=== PATIENT | female | born 1955 | race Caucasian/White ===

== ENCOUNTER 2017-02-17 14:20 | Emergency (ER) | payer MEDICARE, OTHER ==
[~2017-02-17] VITALS: Ht 152.4 cm; Wt 35.0 kg
[~2017-02-17 14:20] MED LIST: ALPR0.25 PO; CIPR250T27 PO; DICY20TA3 PO; LANS15TA5 PO; MAGN400T7 PO; RIZA10TA5 PO; SERT25TA PO; SUMA50TA3 PO
[2017-02-17] MEDS ORDERED: SODIUM CHLORIDE FLUSH 10ML SYR IVF ONE (15:00)
[2017-02-17] MEDS ORDERED: FENTANYL PF 100 MCG/2ML ONE (15:11)
[2017-02-17] MEDS ORDERED: MIDAZOLAM 1 MG/ML, 5ML ONE (15:11)
[2017-02-17] MEDS ORDERED: MIDAZOLAM 1 MG/ML, 5ML IVPush ONE (17:00)
[2017-02-17] MEDS ORDERED: FENTANYL PF 100 MCG/2ML IV ONE (17:00)
[2017-02-17 18:42] VITALS: BP 128/86
== END 2017-02-17 19:00 | disposition home or self-care (01) ==
LOC: ED 18:00
DX: T18.128A Food in esophagus causing other injury, initial encounter (principal); K21.9 Gastro-esophageal reflux disease without esophagitis; X58.XXXA Exposure to other specified factors, initial encounter; Y93.89 Activity, other specified; Y92.89 Other specified places as the place of occurrence of the external cause; Y99.9 Unspecified external cause status
CPT/HCPCS: 43247; 96374; 96375; 99284; J2250; J3010; 88305

== ENCOUNTER → 2017-04-04 | Outpatient (CLI) | payer OTHER | END | disposition home or self-care (01) | LOC: CFH 12:54 | PROVIDERS: ATTEND Nurse Practitioner Family | DX: Z12.31 Encounter for screening mammogram for malignant neoplasm of breast (principal); M81.0 Age-related osteoporosis without current pathological fracture | CPT/HCPCS: G0202 ==

== ENCOUNTER 2018-04-11 14:07 | Inpatient (IN) | payer OTHER ==
[~2018-04-11] VITALS: Ht 152.4 cm; Wt 38.0 kg
[~2018-04-11 14:07] MED LIST changes: +CITA10TA4 PO; -LANS15TA5 PO; +LANS15TA6 PO
[2018-04-11 14:40] LABS: BASOPHILS # (AUTO) 0.03 x10^3/uL (0-0.1); BASOPHILS % (AUTO) 0 % (0-1); EOSINOPHILS # (AUTO) 0.12 x10^3/uL (0-0.4); EOSINOPHILS % (AUTO) 1 % (1-7); LYMPHOCYTES # (AUTO) 2.33 x10^3/uL (1-3.4); LYMPHOCYTES % (AUTO) 28 % (22-44); MD NO; MEAN CORPUSCULAR HEMOGLOBIN 33.8 pg (27.0-34.8); MEAN CORPUSCULAR HGB CONC 33.8 g/dL (32.4-35.8); MEAN CORPUSCULAR VOLUME 100.1 fL (80-100); MONOCYTES # (AUTO) 0.63 x10^3/uL (0.2-0.8); MONOCYTES % (AUTO) 8 % (2-9); NEUTROPHILS # (AUTO) 5.28 x10^3/uL (1.8-6.8); NEUTROPHILS % (AUTO) 63 % (42-75); PLATELET COUNT 248 x10^3/uL (130-400); RED BLOOD COUNT 3.76 x10^6/uL (3.82-5.3); RED CELL DISTRIBUTION WIDTH 12.9 % (9.6-15.2)
[2018-04-11 15:02] LABS: ALBUMIN 3.7 g/dL (3.4-5.0); ANION GAP 8 mmol/L (5-15); CALCIUM 9.3 mg/dL (8.5-10.1); CHLORIDE 104 mmol/L (98-107)
[2018-04-11 15:05] LABS: ALANINE AMINOTRANSFERASE 34 U/L (12-78); ALKALINE PHOSPHATASE 57 U/L (45-117); BILIRUBIN,TOTAL 0.6 mg/dL (0.2-1.0); CREATININE 0.67 mg/dL (0.55-1.02); TOTAL PROTEIN 7.4 g/dL (6.4-8.2)
[2018-04-11] MEDS ORDERED: SODIUM CHLORIDE 0.9% 1,000 ML IV ONE ×2 (15:28→16:37)
[2018-04-11] MEDS ORDERED: SODIUM CHLORIDE FLUSH 10ML SYR IVF ONE (15:30)
[2018-04-11] MEDS ORDERED: HYDROmorphone 1 MG/ML, 1ML IVPush PRN (15:30)
[2018-04-11] MEDS ORDERED: ONDANSETRON 2MG/ML, 2ML IVPush ONE (15:30)
[2018-04-11 15:35] LABS: MICROSCOPIC NOT IND
[2018-04-11] MEDS ORDERED: ONDANSETRON 2MG/ML, 2ML ONE (15:35)
[2018-04-11] MEDS ORDERED: HYDROmorphone 2 MG/ML, 1ML ONE (15:36)
[2018-04-11 15:40] LABS: CULTURE INDICATED? NO
[2018-04-11] MEDS ORDERED: OMNIPAQUE 350 MG/ML, 100ML BOTTLE ONE (16:19)
[2018-04-11] MEDS ORDERED: MORPHINE SULFATE 4 MG/ML, 1ML IVPush PRN (17:00)
[2018-04-11] MEDS ORDERED: SODIUM CHLORIDE FLUSH 10ML SYR IVF PRN (17:00)
[2018-04-11] MEDS ORDERED: ONDANSETRON 2MG/ML, 2ML IVPush PRN (17:00)
[2018-04-11] MEDS: D5%-0.45% NACL 1,000 ML IV SCH (17:26)
[2018-04-11] MEDS ORDERED: hydrALAzine 20 MG/ML, 1ML IVPush PRN (17:30)
[2018-04-11] MEDS ORDERED: LABETALOL 5MG/ML, 20ML IVPush PRN (17:30)
[2018-04-11] MEDS ORDERED: PANTOPRAZOLE 40 MG IV ONE (18:21)
[2018-04-11 18:30] VITALS: BP 136/85
[2018-04-11] MEDS ORDERED: DIPHENHYDRAMINE 50 MG/ML, 1ML IVPush ONE (23:00)
[2018-04-11] MEDS ORDERED: METOCLOPRAMIDE 5 MG/ML, 2ML IVPush ONE (23:00)
[2018-04-12 01:21] VITALS: BP 133/86
[2018-04-12] MEDS: D5%-0.45% NACL 1,000 ML IV SCH ×3 (01:33→20:41)
[2018-04-12 04:49] VITALS: BP 132/88
[2018-04-12] MEDS ORDERED: SUMATRIPTAN 6MG/0.5ML SQ ONE (05:00)
[2018-04-12 06:07] LABS: BASOPHILS # (AUTO) 0.02 x10^3/uL (0-0.1); BASOPHILS % (AUTO) 0 % (0-1); EOSINOPHILS # (AUTO) 0.05 x10^3/uL (0-0.4); EOSINOPHILS % (AUTO) 0 % (1-7); LYMPHOCYTES % (AUTO) 12 % (22-44); MD NO; MEAN CORPUSCULAR HEMOGLOBIN 33.6 pg (27.0-34.8); MEAN CORPUSCULAR VOLUME 98.8 fL (80-100); MEAN PLATELET VOLUME 8.9 fL (7.4-10.4); MONOCYTES # (AUTO) 0.66 x10^3/uL (0.2-0.8); MONOCYTES % (AUTO) 6 % (2-9); NEUTROPHILS # (AUTO) 9.25 x10^3/uL (1.8-6.8); NEUTROPHILS % (AUTO) 82 % (42-75); PLATELET COUNT 195 x10^3/uL (130-400); RED BLOOD COUNT 3.44 x10^6/uL (3.82-5.3); RED CELL DISTRIBUTION WIDTH 12.7 % (9.6-15.2)
[2018-04-12 06:09] LABS: CALCIUM 8.3 mg/dL (8.5-10.1); CHLORIDE 99 mmol/L (98-107)
[2018-04-12 06:13] LABS: ANION GAP 9 mmol/L (5-15); CREATININE 0.53 mg/dL (0.55-1.02)
[2018-04-12 07:15] VITALS: BP 122/90
[2018-04-12] MEDS: PANTOPRAZOLE 40 MG IV IVPush SCH (08:17)
[2018-04-12] MEDS: ONDANSETRON ODT 4 MG PO PRN (12:46)
[2018-04-12 14:15] VITALS: BP 123/86
[2018-04-12] MEDS: SUMATRIPTAN 6MG/0.5ML SQ PRN (17:45)
[2018-04-12 19:11] VITALS: BP 130/87
[2018-04-13 01:12] VITALS: BP 126/89
[2018-04-13] MEDS: ONDANSETRON ODT 4 MG PO PRN (04:37)
[2018-04-13] MEDS: D5%-0.45% NACL 1,000 ML IV SCH ×3 (04:37→20:41)
[2018-04-13 07:20] VITALS: BP 119/87
[2018-04-13] MEDS: SUMATRIPTAN 6MG/0.5ML SQ PRN ×2 (07:28→19:41)
[2018-04-13] MEDS: PANTOPRAZOLE 40 MG IV IVPush SCH (07:51)
[2018-04-13] MEDS: PHENOL THROAT SPRAY BOTTLE MM PRN ×3 (12:57→17:30)
[2018-04-13 14:30] VITALS: BP 134/87
[2018-04-13 19:45] VITALS: BP 131/85
[2018-04-14 01:27] VITALS: BP 108/73
[2018-04-14] MEDS: D5%-0.45% NACL 1,000 ML IV SCH ×3 (03:59→19:46)
[2018-04-14] MEDS: SUMATRIPTAN 6MG/0.5ML SQ PRN ×2 (07:02→19:46)
[2018-04-14 07:46] VITALS: BP 121/81
[2018-04-14] MEDS: PANTOPRAZOLE 40 MG IV IVPush SCH (07:49)
[2018-04-14 14:11] VITALS: BP 122/85
[2018-04-14 18:57] VITALS: BP 119/86
[2018-04-15 03:24] VITALS: BP 107/71
[2018-04-15] MEDS: D5%-0.45% NACL 1,000 ML IV SCH ×2 (04:16→10:30)
[2018-04-15 07:06] VITALS: BP 145/94
[2018-04-15] MEDS: PANTOPRAZOLE 40 MG IV IVPush SCH (08:37)
[2018-04-15] MEDS: SUMATRIPTAN 6MG/0.5ML SQ PRN ×2 (08:37→22:05)
[2018-04-15] MEDS ORDERED: POLYETHYLENE GLYCOL 17 GM PACKET PO PRN (10:30)
[2018-04-15 15:46] VITALS: BP 112/78
[2018-04-15 18:39] VITALS: BP 126/88
[2018-04-15] MEDS: DOCUSATE 100 MG CAPSULE PO SCH (20:35)
[2018-04-16 01:26] VITALS: BP 98/67
[2018-04-16] MEDS: D5%-0.45% NACL 1,000 ML IV SCH (03:06)
[2018-04-16] MEDS: DOCUSATE 100 MG CAPSULE PO SCH (08:48)
[2018-04-16] MEDS: PANTOPRAZOLE 40 MG IV IVPush SCH (08:48)
[2018-04-16 09:45] VITALS: BP 122/85
[2018-04-16] MEDS: SUMATRIPTAN 6MG/0.5ML SQ PRN (10:58)
[2018-04-16] MEDS ORDERED: POLY17PO5 PO (12:36)
[2018-04-16] MEDS ORDERED: DOCU-131 PO (12:36)
[2018-04-16] MEDS ORDERED: BISA10SU54 PR (12:36)
[2018-04-16] MEDS ORDERED: ONDA4TAB13 PO (12:36)
[2018-04-16 14:53] VITALS: BP 116/80
== END 2018-04-16 16:36 | disposition home or self-care (01) | DRG 389 ==
LOC: ED 16:33 → EDIP 16:37 → 3NE 17:45
PROVIDERS: ADMIT Hospitalist; ATTEND Internal Medicine
PROC: 0D9670Z Drainage of Stomach with Drainage Device, Via Natural or Artificial Opening (ICD-10-PCS; principal; 2018-04-12)
DX: K56.52 Intestinal adhesions [bands] with complete obstruction (principal); E44.1 Mild protein-calorie malnutrition; G43.909 Migraine, unspecified, not intractable, without status migrainosus; K21.9 Gastro-esophageal reflux disease without esophagitis; H91.90 Unspecified hearing loss, unspecified ear; Z97.4 Presence of external hearing-aid; Z88.0 Allergy status to penicillin; Z88.6 Allergy status to analgesic agent
CPT/HCPCS: 36415; 74022; 74177; 80048; 80053; 81003; 83690; 85025; 93005; 96374; 96375; J1170; J2405; Q0162; Q9967; C9113; J1200; J2765; J3030; J7030

== ENCOUNTER 2018-09-13 16:13 | Observation (INO) | payer OTHER ==
[~2018-09-13] VITALS: Ht 152.4 cm; Wt 39.1 kg
[~2018-09-13 16:13] MED LIST changes: +BISA10SU54 PR; +DOCU-131 PO; +ONDA4TAB13 PO; +POLY17PO5 PO
--- NOTE | 2018-09-13 17:17 | NUR ---
GUEST SERVICES OFFICER: PT WALKED BACK FROM LOBBY TO ROOM. STEADY UPON AMBULATION.
[2018-09-13 17:21] LABS: BASOPHILS # (AUTO) 0.02 x10^3/uL (0-0.1); BASOPHILS % (AUTO) 0 % (0-1); EOSINOPHILS # (AUTO) 0.11 x10^3/uL (0-0.4); EOSINOPHILS % (AUTO) 1 % (1-7); LYMPHOCYTES # (AUTO) 2.44 x10^3/uL (1-3.4); LYMPHOCYTES % (AUTO) 30 % (22-44); MD NO; MEAN CORPUSCULAR HEMOGLOBIN 34.4 pg (27.0-34.8); MEAN CORPUSCULAR HGB CONC 33.8 g/dL (32.4-35.8); MEAN CORPUSCULAR VOLUME 101.7 fL (80-100); MEAN PLATELET VOLUME 8.8 fL (7.4-10.4); MONOCYTES # (AUTO) 0.63 x10^3/uL (0.2-0.8); MONOCYTES % (AUTO) 8 % (2-9); NEUTROPHILS % (AUTO) 61 % (42-75); PLATELET COUNT 267 x10^3/uL (130-400); RED BLOOD COUNT 3.77 x10^6/uL (3.82-5.3)
[2018-09-13 17:33] LABS: ALANINE AMINOTRANSFERASE 47 U/L (12-78); ALBUMIN 3.9 g/dL (3.4-5.0); ANION GAP 9 mmol/L (5-15); CALCIUM 9.1 mg/dL (8.5-10.1); CHLORIDE 107 mmol/L (98-107); CREATININE 0.81 mg/dL (0.55-1.02)
[2018-09-13 17:35] LABS: ALKALINE PHOSPHATASE 67 U/L (45-117); BILIRUBIN,TOTAL 0.4 mg/dL (0.2-1.0); TOTAL PROTEIN 7.8 g/dL (6.4-8.2)
--- NOTE | 2018-09-13 18:08 | NUR ---
PT. IS A & O X 4 WITH C/O CONSTIPATION AND ABD. PAIN. PT. STATES SHE HAS A HX OF SBO WITH BOWEL RESECTION. PT. STATES SHE IS PASSING GAS. PT. WAS SENT FROM URGENT CARE FOR FURTHER EVALUATION. IV ACCESS WAS ESTABLISHED. PT.'S ABD. IS SOFT AND FLAT WITH BS + HYPOACTIVE. PT. WAS TAKEN TO CT SCAN. PT. WAS UNABLE TO GIVE A UA.
[2018-09-13] MEDS ORDERED: OMNIPAQUE 350 MG/ML, 100ML BOTTLE ONE (18:44)
--- NOTE | 2018-09-13 18:53 | NUR ---
REPORT WAS GIVEN TO CROW RIVAS.
[2018-09-13] MEDS ORDERED: SUMA25TA3 IM (19:09)
[2018-09-13] MEDS ORDERED: SODIUM CHLORIDE 0.9% 1,000 ML IV ONE (19:32)
[2018-09-13] MEDS ORDERED: SODIUM CHLORIDE FLUSH 10ML SYR IVF PRN (20:00)
[2018-09-13] MEDS ORDERED: POLYETHYLENE GLYCOL 17 GM PACKET PO PRN (20:00)
[2018-09-13] MEDS: HEPARIN 5,000 UNITS/ML, 1ML SQ SCH (20:00)
[2018-09-13] MEDS ORDERED: RIZATRIPTAN 10MG TABLET PO PRN (20:00)
[2018-09-13] MEDS ORDERED: morphine SULFATE 10 MG/ML, 1ML IVPush PRN (20:00)
[2018-09-13] MEDS ORDERED: ACETAMINOPHEN 325 MG TABLET PO PRN (20:00)
[2018-09-13] MEDS ORDERED: ONDANSETRON ODT 4 MG PO PRN ×2 (20:00)
[2018-09-13 20:02] LABS: MICROSCOPIC NOT IND
[2018-09-13 20:09] LABS: CULTURE INDICATED? NO
[2018-09-13 20:24] VITALS: BP 110/75
[2018-09-13 20:45] LABS: FOLATE LEVEL > 20.0 ng/mL (3.1-17.5)
[2018-09-13] MEDS ORDERED: SUMATRIPTAN SUCCINATE 25 MG IM SCH (21:00)
[2018-09-13] MEDS ORDERED: SUMATRIPTAN SUCCINATE 25 MG IM PRN (21:00)
[2018-09-13] MEDS: BISACODYL 10 MG SUPP PR SCH (22:25)
[2018-09-13] MEDS: NS + 20MEQ KCL 1,000 ML IV SCH (22:25)
[2018-09-14 00:46] LABS: CLOSTRIDIUM DIFFICILE ANTIGEN NEGATIVE; CLOSTRIDIUM DIFFICILE TOXIN NEGATIVE (Negative)
[2018-09-14 03:35] VITALS: BP 90/60
[2018-09-14 06:55] VITALS: BP 113/77
[2018-09-14] MEDS: NS + 20MEQ KCL 1,000 ML IV SCH ×2 (08:00→22:20)
[2018-09-14] MEDS: CITALOPRAM 10 MG TABLET PO SCH (08:33)
[2018-09-14] MEDS: HEPARIN 5,000 UNITS/ML, 1ML SQ SCH ×3 (08:34→19:49)
[2018-09-14] MEDS: BISACODYL 10 MG SUPP PR SCH ×2 (09:00→21:00)
[2018-09-14 09:32] LABS: BASOPHILS # (AUTO) 0.02 x10^3/uL (0-0.1); BASOPHILS % (AUTO) 0 % (0-1); EOSINOPHILS # (AUTO) 0.08 x10^3/uL (0-0.4); EOSINOPHILS % (AUTO) 1 % (1-7); LYMPHOCYTES % (AUTO) 29 % (22-44); MD NO; MEAN CORPUSCULAR HEMOGLOBIN 34.1 pg (27.0-34.8); MEAN CORPUSCULAR HGB CONC 33.9 g/dL (32.4-35.8); MEAN CORPUSCULAR VOLUME 100.5 fL (80-100); MEAN PLATELET VOLUME 8.7 fL (7.4-10.4); MONOCYTES # (AUTO) 0.49 x10^3/uL (0.2-0.8); MONOCYTES % (AUTO) 7 % (2-9); NEUTROPHILS # (AUTO) 4.39 x10^3/uL (1.8-6.8); NEUTROPHILS % (AUTO) 63 % (42-75); PLATELET COUNT 208 x10^3/uL (130-400); RED BLOOD COUNT 3.51 x10^6/uL (3.82-5.3); RED CELL DISTRIBUTION WIDTH 13.1 % (9.6-15.2)
[2018-09-14 09:36] LABS: ANION GAP 10 mmol/L (5-15); CALCIUM 8.8 mg/dL (8.5-10.1); CHLORIDE 112 mmol/L (98-107)
[2018-09-14 09:39] LABS: ALANINE AMINOTRANSFERASE 42 U/L (12-78); ALKALINE PHOSPHATASE 49 U/L (45-117); BILIRUBIN,TOTAL 0.5 mg/dL (0.2-1.0); CREATININE 0.68 mg/dL (0.55-1.02); TOTAL PROTEIN 5.8 g/dL (6.4-8.2)
[2018-09-14] MEDS: SUMATRIPTAN 6MG/0.5ML SQ PRN (10:17)
[2018-09-14] MEDS: MESALAMINE 400 MG CAPSULE.DR PO SCH ×3 (10:17→22:20)
[2018-09-14 12:12] VITALS: BP 114/77
[2018-09-14] MEDS ORDERED: POTASSIUM CHLORIDE 20 MEQ TAB.ER.PRT PO ONE (16:00)
[2018-09-14 19:06] VITALS: BP 115/81
[2018-09-15 02:35] VITALS: BP 100/69
[2018-09-15] MEDS: HEPARIN 5,000 UNITS/ML, 1ML SQ SCH (04:00)
[2018-09-15 07:12] VITALS: BP 102/69
[2018-09-15 08:14] LABS: BASOPHILS # (AUTO) 0.02 x10^3/uL (0-0.1); BASOPHILS % (AUTO) 0 % (0-1); EOSINOPHILS % (AUTO) 2 % (1-7); LYMPHOCYTES # (AUTO) 1.83 x10^3/uL (1-3.4); LYMPHOCYTES % (AUTO) 33 % (22-44); MD NO; MEAN CORPUSCULAR HEMOGLOBIN 34.1 pg (27.0-34.8); MEAN CORPUSCULAR VOLUME 100.2 fL (80-100); MONOCYTES # (AUTO) 0.41 x10^3/uL (0.2-0.8); MONOCYTES % (AUTO) 8 % (2-9); NEUTROPHILS # (AUTO) 3.17 x10^3/uL (1.8-6.8); NEUTROPHILS % (AUTO) 57 % (42-75); PLATELET COUNT 203 x10^3/uL (130-400); RED BLOOD COUNT 3.39 x10^6/uL (3.82-5.3); RED CELL DISTRIBUTION WIDTH 12.9 % (9.6-15.2)
[2018-09-15] MEDS: BISACODYL 10 MG SUPP PR SCH (09:00)
[2018-09-15] MEDS: NS + 20MEQ KCL 1,000 ML IV SCH (09:16)
[2018-09-15] MEDS: CITALOPRAM 10 MG TABLET PO SCH (09:17)
[2018-09-15] MEDS: SUMATRIPTAN 6MG/0.5ML SQ PRN (09:17)
[2018-09-15] MEDS: MESALAMINE 400 MG CAPSULE.DR PO SCH (09:17)
[2018-09-15] MEDS ORDERED: Mesalamine PO (11:12)
[2018-09-15 12:55] VITALS: BP 118/83
== END 2018-09-15 14:55 | disposition home or self-care (01) ==
LOC: ED 19:39 → EDIP 19:54 → INTOOBSV 19:54 → 3NE 20:05 → DCLOUNGE 09-15 14:33
PROVIDERS: ADMIT Internal Medicine; ATTEND Internal Medicine
DX: K52.9 Noninfective gastroenteritis and colitis, unspecified (principal); D53.9 Nutritional anemia, unspecified; E87.6 Hypokalemia; G43.909 Migraine, unspecified, not intractable, without status migrainosus; K21.9 Gastro-esophageal reflux disease without esophagitis; H91.90 Unspecified hearing loss, unspecified ear; F41.9 Anxiety disorder, unspecified; F13.20 Sedative, hypnotic or anxiolytic dependence, uncomplicated; Z79.899 Other long term (current) drug therapy
CPT/HCPCS: 36415; 74177; 80053; 81003; 82607; 82746; 85025; 87046; 87324; 87427; 89055; 96365; 96366; 96372; 99284; G0378; J1644; J3030; J3480; Q9967; 99285

== ENCOUNTER 2018-11-11 16:23 | Inpatient (IN) | payer MEDICARE, OTHER ==
[~2018-11-11] VITALS: Ht 165.1 cm; Wt 39.4 kg
[~2018-11-11 16:23] MED LIST changes: +Mesalamine PO; +SUMA25TA3 IM
[2018-11-11] MEDS ORDERED: SODIUM CHLORIDE 0.9% 1,000 ML IV ONE (17:13)
[2018-11-11] MEDS ORDERED: SODIUM CHLORIDE FLUSH 10ML SYR IVF ONE (17:30)
[2018-11-11] MEDS ORDERED: ONDANSETRON 2MG/ML, 2ML IVPush ONE (17:30)
--- NOTE | 2018-11-11 17:35 | NUR ---
assumed care of tp. attemtped to enter room for pt assessment, pt in RAD
[2018-11-11 17:38] LABS: BASOPHILS # (AUTO) 0.02 x10^3/uL (0-0.1); BASOPHILS % (AUTO) 0 % (0-1); EOSINOPHILS # (AUTO) 0.04 x10^3/uL (0-0.4); EOSINOPHILS % (AUTO) 1 % (1-7); LYMPHOCYTES # (AUTO) 1.44 x10^3/uL (1-3.4); LYMPHOCYTES % (AUTO) 19 % (22-44); MD NO; MEAN CORPUSCULAR HEMOGLOBIN 34.1 pg (27.0-34.8); MEAN CORPUSCULAR HGB CONC 34.1 g/dL (32.4-35.8); MEAN PLATELET VOLUME 9.3 fL (7.4-10.4); MONOCYTES # (AUTO) 0.59 x10^3/uL (0.2-0.8); MONOCYTES % (AUTO) 8 % (2-9); NEUTROPHILS # (AUTO) 5.59 x10^3/uL (1.8-6.8); NEUTROPHILS % (AUTO) 73 % (42-75); PLATELET COUNT 248 x10^3/uL (130-400); RED BLOOD COUNT 4.15 x10^6/uL (3.82-5.3)
--- NOTE | 2018-11-11 17:40 | NUR ---
pt returned to room. pt here for c/o generalized abd pain and nausea x2 days. pt states that she had one episode of vomiting yesterday but none today. pt resting in position of comfort. no family at bedside.
[2018-11-11 17:51] LABS: ALANINE AMINOTRANSFERASE 30 U/L (12-78); ALBUMIN 3.8 g/dL (3.4-5.0); ANION GAP 7 mmol/L (5-15); CALCIUM 9.7 mg/dL (8.5-10.1); CHLORIDE 99 mmol/L (98-107); CREATININE 0.97 mg/dL (0.55-1.02)
[2018-11-11 17:53] LABS: ALKALINE PHOSPHATASE 67 U/L (45-117); BILIRUBIN,TOTAL 0.6 mg/dL (0.2-1.0)
--- NOTE | 2018-11-11 18:05 | NUR ---
IV has been placed and fluids initiated per order. pt given bear hugger and positioning for comfort. pt has made multiple requests for "a shot of morphine" pt advised that only zofran ordered at this time. pt verbalized understanding
[2018-11-11] MEDS ORDERED: ONDANSETRON 2MG/ML, 2ML ONE (18:13)
--- NOTE | 2018-11-11 18:30 | NUR ---
pt resting with eyes closed. no vomiting noted
--- NOTE | 2018-11-11 19:14 | NUR ---
attempted to enter room to notify pt that urine sample needed. admit provider at [facility] for eval and requesting imitrex for pt MILLER
[2018-11-11] MEDS ORDERED: SUMATRIPTAN 6MG/0.5ML SQ ONE ×2 (19:18→19:30)
--- NOTE | 2018-11-11 19:26 | NUR ---
pt updated on POC
[2018-11-11] MEDS ORDERED: SODIUM CHLORIDE FLUSH 10ML SYR IVF PRN (19:30)
--- NOTE | 2018-11-11 19:33 | NUR ---
bed assignment has been recieved. attempting to call report. pt reports that sheis having pain at 10/10 but i resting very quietly and has been dozing intermittently
--- NOTE | 2018-11-11 19:36 | NUR ---
RN not ready for report. will call back
--- NOTE | 2018-11-11 20:03 | NUR ---
report to Ana Cristina RIVAS
--- NOTE | 2018-11-11 20:15 | NUR ---
Semaj tee in [place] - 11/11/18 at 2016 by MARIE oral swabs and oral care given for comfort
[2018-11-11] MEDS ORDERED: hydrALAzine 20 MG/ML, 1ML IVPush PRN (21:30)
[2018-11-11] MEDS ORDERED: TEMAZEPAM 15 MG CAPSULE PO PRN (21:30)
[2018-11-11] MEDS: GABAPENTIN 100 MG CAPSULE PO ONE ×2 (22:23→22:30)
[2018-11-11] MEDS ORDERED: KETOROLAC 30 MG/1 ML IVPush PRN (22:30)
[2018-11-12 00:10] VITALS: BP 105/71
[2018-11-12 00:39] VITALS: BP 88/56
[2018-11-12 05:08] LABS: ANION GAP 6 mmol/L (5-15); CALCIUM 9.1 mg/dL (8.5-10.1); CHLORIDE 106 mmol/L (98-107)
[2018-11-12 05:10] LABS: CREATININE 0.88 mg/dL (0.55-1.02)
[2018-11-12 05:17] LABS: MD YES; MEAN CORPUSCULAR HEMOGLOBIN 32.6 pg (27.0-34.8); MEAN CORPUSCULAR HGB CONC 32.6 g/dL (32.4-35.8); MEAN CORPUSCULAR VOLUME 100.2 fL (80-100); MEAN PLATELET VOLUME 10.1 fL (7.4-10.4); PLATELET COUNT 191 x10^3/uL (130-400); RED BLOOD COUNT 3.55 x10^6/uL (3.82-5.3); RED CELL DISTRIBUTION WIDTH 13.1 % (9.6-15.2)
[2018-11-12 05:20] LABS: BAND#(MANUAL) 1.11 x10^3/uL; BANDS%(MANUAL) 13 % (0-7); LYMPH#(MANUAL) 2.64 x10^3/uL (1-3.4); LYMPHS% (MANUAL) 31 % (22-44); MONOS#(MANUAL) 0.85 x10^3/uL (0.3-2.7); MONOS% (MANUAL) 10 % (2-9); SEG#(MANUAL) 3.91 x10^3/uL (1.8-6.8); SEGS% (MANUAL) 46 % (42-75)
[2018-11-12 05:21] LABS: <PLATELET ESTIMATE> ADEQUATE; <PLT MORPHOLOGY> NORMAL PLT MORPH; ANISOCYTOSIS 1+
[2018-11-12] MEDS: RIZATRIPTAN 10MG TABLET PO PRN (06:39)
[2018-11-12 08:18] VITALS: BP 108/78
[2018-11-12] MEDS: BISACODYL 10 MG SUPP PR SCH (09:20)
[2018-11-12] MEDS: CITALOPRAM 10 MG TABLET PO SCH (09:25)
[2018-11-12] MEDS ORDERED: SUMATRIPTAN 6MG/0.5ML SQ PRN (13:00)
[2018-11-12 14:57] VITALS: BP 94/64
[2018-11-12 18:30] LABS: MICROSCOPIC NOT IND
[2018-11-12 18:33] LABS: CULTURE INDICATED? NO
[2018-11-12 19:45] VITALS: BP 103/70
[2018-11-13 00:19] VITALS: BP 106/65
[2018-11-13 07:26] VITALS: BP 90/60
[2018-11-13] MEDS: BISACODYL 10 MG SUPP PR SCH (07:50)
[2018-11-13] MEDS: CITALOPRAM 10 MG TABLET PO SCH (09:24)
[2018-11-13 11:25] VITALS: BP 98/65
[2018-11-13 12:00] VITALS: BP 111/76
[2018-11-13 20:46] VITALS: BP 103/72
[2018-11-14 02:09] VITALS: BP 89/57
[2018-11-14 04:13] VITALS: BP 103/69
[2018-11-14 05:13] LABS: BASOPHILS # (AUTO) 0.01 x10^3/uL (0-0.1); BASOPHILS % (AUTO) 0 % (0-1); EOSINOPHILS % (AUTO) 2 % (1-7); LYMPHOCYTES # (AUTO) 1.53 x10^3/uL (1-3.4); LYMPHOCYTES % (AUTO) 26 % (22-44); MD NO; MEAN CORPUSCULAR HEMOGLOBIN 34.3 pg (27.0-34.8); MEAN CORPUSCULAR HGB CONC 34.3 g/dL (32.4-35.8); MEAN CORPUSCULAR VOLUME 100.1 fL (80-100); MEAN PLATELET VOLUME 9.1 fL (7.4-10.4); MONOCYTES # (AUTO) 0.64 x10^3/uL (0.2-0.8); MONOCYTES % (AUTO) 11 % (2-9); NEUTROPHILS # (AUTO) 3.59 x10^3/uL (1.8-6.8); NEUTROPHILS % (AUTO) 61 % (42-75); PLATELET COUNT 192 x10^3/uL (130-400); RED BLOOD COUNT 3.29 x10^6/uL (3.82-5.3); RED CELL DISTRIBUTION WIDTH 12.9 % (9.6-15.2)
[2018-11-14 05:23] LABS: ANION GAP 5 mmol/L (5-15); CALCIUM 7.7 mg/dL (8.5-10.1); CHLORIDE 109 mmol/L (98-107)
[2018-11-14 05:24] LABS: CREATININE 0.65 mg/dL (0.55-1.02)
[2018-11-14 07:24] VITALS: BP 90/58
[2018-11-14] MEDS: BISACODYL 10 MG SUPP PR SCH (07:35)
[2018-11-14] MEDS: CITALOPRAM 10 MG TABLET PO SCH (09:41)
[2018-11-14 13:11] VITALS: BP 104/71
[2018-11-14] MEDS: RIZATRIPTAN 10MG TABLET PO PRN (13:28)
[2018-11-14] MEDS ORDERED: BISA10SU54 PR (15:22)
[2018-11-14] MEDS ORDERED: POLY17PO5 PO (15:22)
[2018-11-14] MEDS ORDERED: DOCU-131 PO (15:22)
[2018-11-14] MEDS ORDERED: ONDA4TAB13 PO (15:22)
[2018-11-15 07:30] VITALS: BP 121/80
== END 2018-11-14 18:40 | disposition home health service (06) | DRG 388 ==
LOC: ED 19:01 → EDIP 19:10 → 3NE 20:20
PROVIDERS: ADMIT Hospitalist; ATTEND Hospitalist
DX: K56.600 Partial intestinal obstruction, unspecified as to cause (principal); E43 Unspecified severe protein-calorie malnutrition; Z68.1 Body mass index [BMI] 19.9 or less, adult; F33.9 Major depressive disorder, recurrent, unspecified; K56.7 Ileus, unspecified; G43.909 Migraine, unspecified, not intractable, without status migrainosus; H91.93 Unspecified hearing loss, bilateral; K21.9 Gastro-esophageal reflux disease without esophagitis; Z88.6 Allergy status to analgesic agent; Z88.0 Allergy status to penicillin; Z88.8 Allergy status to other drugs, medicaments and biological substances
CPT/HCPCS: 36415; 74022; 74176; 80048; 80053; 81003; 83605; 83690; 83735; 84100; 85025; 96361; 96374; G0378; J1885; J2405; J3030; J7030

== ENCOUNTER 2019-05-11 10:26 | Outpatient (CLI) | payer MEDICARE | END 2019-05-11 23:59 | disposition home or self-care (01) | LOC: CFH 10:26 | PROVIDERS: ATTEND Genetic Counselor, MS | DX: Z12.31 Encounter for screening mammogram for malignant neoplasm of breast (principal); M81.0 Age-related osteoporosis without current pathological fracture; Z78.0 Asymptomatic menopausal state | CPT/HCPCS: 77063; 77067; 77080 ==

== ENCOUNTER 2019-10-20 21:25 | Inpatient (IN) | payer MEDICARE ==
[~2019-10-20] VITALS: Ht 152.4 cm; Wt 39.6 kg
[~2019-10-20 21:25] MED LIST changes: -MAGN400T7 PO; +MAGN400T9 PO
[2019-10-20] MEDS ORDERED: OMNIPAQUE 350 MG/ML, 100ML BOTTLE ONE (21:55)
[2019-10-20] MEDS ORDERED: MORPHINE SULFATE 4 MG/ML, 1ML IVPush PRN (22:00)
[2019-10-20] MEDS ORDERED: SODIUM CHLORIDE FLUSH 10ML SYR IVF ONE (22:00)
[2019-10-20] MEDS ORDERED: SODIUM CHLORIDE 0.9% 1,000ML IVBOLUS ONE (22:00)
[2019-10-20] MEDS ORDERED: ONDANSETRON 2MG/ML, 2ML IVPush ONE (22:00)
[2019-10-20 22:10] LABS: BASOPHILS # (AUTO) 0.02 x10^3/uL (0-0.1); BASOPHILS % (AUTO) 0 % (0-1); EOSINOPHILS % (AUTO) 1 % (1-7); LYMPHOCYTES % (AUTO) 31 % (22-44); MD NO; MEAN CORPUSCULAR HEMOGLOBIN 32.9 pg (27.0-34.8); MEAN CORPUSCULAR HGB CONC 32.9 g/dL (32.4-35.8); MEAN PLATELET VOLUME 9.4 fL (7.4-10.4); MONOCYTES # (AUTO) 0.83 x10^3/uL (0.2-0.8); MONOCYTES % (AUTO) 11 % (2-9); NEUTROPHILS # (AUTO) 4.46 x10^3/uL (1.8-6.8); NEUTROPHILS % (AUTO) 57 % (42-75); PLATELET COUNT 245 x10^3/uL (130-400); RED BLOOD COUNT 3.77 x10^6/uL (3.82-5.3); RED CELL DISTRIBUTION WIDTH 13.1 % (9.6-15.2)
[2019-10-20] MEDS ORDERED: MORPHINE SULFATE 4 MG/ML, 1ML ONE (22:11)
[2019-10-20] MEDS ORDERED: ONDANSETRON 2MG/ML, 2ML ONE (22:11)
[2019-10-20 22:22] LABS: ALANINE AMINOTRANSFERASE 31 U/L (12-78); ALBUMIN 3.4 g/dL (3.4-5.0); ANION GAP 7 mmol/L (5-15); CALCIUM 8.5 mg/dL (8.5-10.1); CHLORIDE 102 mmol/L (98-107); CREATININE 0.84 mg/dL (0.55-1.02)
[2019-10-20 22:25] LABS: ALKALINE PHOSPHATASE 67 U/L (45-117); BILIRUBIN,TOTAL 0.7 mg/dL (0.2-1.0); TOTAL PROTEIN 7.6 g/dL (6.4-8.2)
[2019-10-20 23:45] LABS: CULTURE INDICATED? YES; MICROSCOPIC INDICATED
[2019-10-21] MEDS ORDERED: DIPHENHYDRAMINE 50 MG/ML, 1ML IVPush ONE
[2019-10-21] MEDS ORDERED: METOCLOPRAMIDE 5 MG/ML, 2ML IVPush ONE
--- NOTE | 2019-10-21 00:20 | NUR ---
report to sagar felipe
[2019-10-21] MEDS ORDERED: NS + 40MEQ KCL 1,000 ML IV ONE ×2 (00:23→00:30)
[2019-10-21] MEDS ORDERED: DIPHENHYDRAMINE 50 MG/ML, 1ML ONE (00:23)
[2019-10-21] MEDS ORDERED: METOCLOPRAMIDE 5 MG/ML, 2ML ONE (00:23)
[2019-10-21] MEDS ORDERED: ACETAMINOPHEN 325 MG TABLET PO PRN (01:00)
[2019-10-21] MEDS ORDERED: PROMETHAZINE 25 MG/ML, 1ML IM PRN (01:00)
[2019-10-21] MEDS ORDERED: morphine SULFATE 10 MG/ML, 1ML IVPush PRN (01:00)
[2019-10-21 01:03] VITALS: BP 93/59
[2019-10-21 01:33] VITALS: BP 93/59
[2019-10-21 07:34] VITALS: BP 91/52
[2019-10-21] MEDS ORDERED: POTASSIUM CHLORIDE 40 MEQ in SODIUM CHLORIDE 0.9% 500 ML IV ONE (09:00)
[2019-10-21] MEDS ORDERED: POTASSIUM PHOSPHATE 22 MEQ in SODIUM CHLORIDE 0.9% 500 ML IV ONE (09:00)
[2019-10-21] MEDS ORDERED: PINK LADY ENEMA 490 ML BOTTLE PR ONE (09:00)
[2019-10-21 09:23] LABS: ANION GAP 6 mmol/L (5-15); CALCIUM 7.6 mg/dL (8.5-10.1); CHLORIDE 112 mmol/L (98-107)
[2019-10-21 13:00] VITALS: BP 95/60
[2019-10-21 16:21] LABS: MICROSCOPIC NOT IND
[2019-10-21 16:24] LABS: CULTURE INDICATED? NO
[2019-10-21] MEDS: ONDANSETRON 2MG/ML, 2ML IVPush PRN (16:31)
[2019-10-21 19:06] VITALS: BP 111/75
[2019-10-21 20:34] VITALS: BP 103/71
[2019-10-21] MEDS: SUMATRIPTAN 6MG/0.5ML SQ PRN (20:41)
[2019-10-22] MEDS: D5%-0.45NACL+KCL 20MEQ 1,000 ML IV SCH ×5 (01:17→21:45)
[2019-10-22 02:00] VITALS: BP 112/76
[2019-10-22] MEDS ORDERED: LORazepam 2 MG/ML, 1ML IVPush PRN (05:00)
[2019-10-22 07:22] VITALS: BP 114/81
[2019-10-22] MEDS ORDERED: OXYcodone/APAP 5/325MG TABLET PO PRN (09:00)
[2019-10-22 13:25] VITALS: BP 116/81
[2019-10-22 19:10] VITALS: BP 119/84
[2019-10-22 20:34] VITALS: BP 116/80
[2019-10-22] MEDS: SUMATRIPTAN 6MG/0.5ML SQ PRN (20:35)
[2019-10-22] MEDS: ONDANSETRON 2MG/ML, 2ML IVPush PRN (21:01)
[2019-10-23 00:56] VITALS: BP 113/71
[2019-10-23] MEDS: D5%-0.45NACL+KCL 20MEQ 1,000 ML IV SCH (06:32)
[2019-10-23 07:00] VITALS: BP 107/71
[2019-10-23] MEDS: ONDANSETRON 2MG/ML, 2ML IVPush PRN (11:25)
[2019-10-23 13:25] VITALS: BP 132/92
[2019-10-23] MEDS: SUMATRIPTAN 6MG/0.5ML SQ PRN ×2 (14:52→23:25)
[2019-10-23 20:12] VITALS: BP 131/87
[2019-10-23 23:24] VITALS: BP 130/88
[2019-10-24] MEDS ORDERED: D5%-0.45NACL+KCL 20MEQ 1,000 ML IV SCH (00:54)
[2019-10-24 01:27] VITALS: BP 119/81
[2019-10-24 07:08] VITALS: BP 124/84
[2019-10-24] MEDS ORDERED: CALC-666 PO (11:40)
[2019-10-24 15:01] VITALS: BP 123/87
== END 2019-10-24 16:00 | disposition home health service (06) | DRG 388 ==
LOC: ED 22:12 → EDIP 23:54 → 3N 10-21 00:44
PROVIDERS: ADMIT Family Medicine; ATTEND Internal Medicine
PROC: 0T9B70Z Drainage of Bladder with Drainage Device, Via Natural or Artificial Opening (ICD-10-PCS; principal; 2019-10-21)
DX: K56.7 Ileus, unspecified (principal); E43 Unspecified severe protein-calorie malnutrition; Z68.1 Body mass index [BMI] 19.9 or less, adult; E83.39 Other disorders of phosphorus metabolism; E83.51 Hypocalcemia; E87.6 Hypokalemia; F41.1 Generalized anxiety disorder; G43.909 Migraine, unspecified, not intractable, without status migrainosus; Z88.6 Allergy status to analgesic agent; H91.90 Unspecified hearing loss, unspecified ear; Z88.0 Allergy status to penicillin; Z88.8 Allergy status to other drugs, medicaments and biological substances; K21.9 Gastro-esophageal reflux disease without esophagitis; Z90.710 Acquired absence of both cervix and uterus; F32.9 Major depressive disorder, single episode, unspecified
CPT/HCPCS: 36415; 74018; 74177; 80048; 80053; 81001; 81003; 83690; 83735; 84100; 85025; 87086; 96361; 96374; 96375; G0378; J2405; J3480; Q9967; J1200; J2060; J2270; J2765; J3030; J7030; J7040

== ENCOUNTER 2020-02-27 12:11 | Emergency (ER) | payer MEDICARE ==
[~2020-02-27] VITALS: Ht 152.4 cm; Wt 41.6 kg
[~2020-02-27 12:11] MED LIST changes: +CALC-666 PO
--- NOTE | 2020-02-27 13:08 | NUR ---
pt seen and examined by NANCY White, pt presents to ED seeking workup for generalized abd pain, nausea and no bm x 4 days. pt has hx sbo. pt refusing to allow lab draw prior to xray, insisting, "I need the xray first." pt educated regarding need for labwork shruthi to facilitate workup, pt remains insistent that she needs xray first. radiology called to expedite abd xray.
--- NOTE | 2020-02-27 13:21 | NUR ---
pt back from radiology, labs drawn, pt instructed to provide clean catch ua, supplies provided.
[2020-02-27 13:40] LABS: BASOPHILS % (AUTO) 0 % (0-1); EOSINOPHILS # (AUTO) 0.12 x10^3/uL (0-0.4); EOSINOPHILS % (AUTO) 1 % (1-7); LYMPHOCYTES # (AUTO) 2.22 x10^3/uL (1-3.4); LYMPHOCYTES % (AUTO) 20 % (22-44); MD NO; MEAN CORPUSCULAR HEMOGLOBIN 32.8 pg (27.0-34.8); MEAN CORPUSCULAR HGB CONC 33.1 g/dL (32.4-35.8); MEAN CORPUSCULAR VOLUME 99.2 fL (80-100); MEAN PLATELET VOLUME 9.3 fL (7.4-10.4); MONOCYTES % (AUTO) 6 % (2-9); NEUTROPHILS # (AUTO) 8.04 x10^3/uL (1.8-6.8); NEUTROPHILS % (AUTO) 73 % (42-75); PLATELET COUNT 265 x10^3/uL (130-400); RED CELL DISTRIBUTION WIDTH 13.6 % (9.6-15.2)
[2020-02-27 13:49] LABS: ALANINE AMINOTRANSFERASE 30 U/L (12-78); ALBUMIN 3.8 g/dL (3.4-5.0); ANION GAP 7 mmol/L (5-15); CALCIUM 9.6 mg/dL (8.5-10.1); CHLORIDE 106 mmol/L (98-107)
[2020-02-27 13:52] LABS: ALKALINE PHOSPHATASE 64 U/L (45-117); BILIRUBIN,TOTAL 0.6 mg/dL (0.2-1.0); CREATININE 0.95 mg/dL (0.55-1.02)
--- NOTE | 2020-02-27 13:52 | NUR ---
urine sample collected from pt and sent to lab. pt awaiting xray and lab results at this time. pt a&o, resps even and unlabored, no complaint at this time.
[2020-02-27 14:10] LABS: MICROSCOPIC NOT IND
--- NOTE | 2020-02-27 14:22 | NUR ---
HAWK GIL AT BEDSIDE, UPDATING PT WITH RESULTS AND POC.
[2020-02-27 14:23] VITALS: BP 116/77
--- NOTE | 2020-02-27 14:47 | NUR ---
REPORT RECEIVED FROM ROB GARCIA. PLAN OF CARE DISCUSSED. AWAITING DISCHARGE PAPERWORK
--- NOTE | 2020-02-27 14:51 | NUR ---
REPORT GIVEN TO ROB LAND AT BEDSIDE, PT A&O, RESPS EVEN AND UNLABORED, BISMARK.
--- NOTE | 2020-02-27 14:55 | NUR ---
Patient given discharge instructions and they have confirmed that they understand the instructions. Patient ambulatory with steady gait.
== END 2020-02-27 14:58 | disposition home or self-care (01) ==
LOC: ED 13:46
DX: K59.00 Constipation, unspecified (principal); R10.84 Generalized abdominal pain; R05 Cough; R11.0 Nausea; K21.9 Gastro-esophageal reflux disease without esophagitis
CPT/HCPCS: 36415; 74021; 80053; 81003; 83690; 85025; 99284

== ENCOUNTER 2020-05-23 22:13 | Inpatient (IN) | payer MEDICARE ==
[~2020-05-23] VITALS: Ht 152.4 cm; Wt 43.6 kg
--- NOTE | 2020-05-23 22:26 | NUR ---
Patient BIB ambulance c/o epigastric pain, N/V x2 hours. Patient has a hx of bowel obstructions and this feels similar. Patient has vomited 5-6 times. EMS admin Fentanyl and Zofran. Patient is in NAD. Respirations even and unlabored.
[2020-05-23] MEDS ORDERED: PLEASE ENTER HEIGHT AND WEIGHT MC SCH (22:30)
[2020-05-23] MEDS ORDERED: ONDANSETRON 2MG/ML, 2ML IVPush ONE (22:30)
[2020-05-23] MEDS ORDERED: ONDANSETRON 2MG/ML, 2ML ONE (22:38)
[2020-05-23 23:03] LABS: BASOPHILS # (AUTO) 0.02 x10^3/uL (0-0.1); BASOPHILS % (AUTO) 0 % (0-1); EOSINOPHILS % (AUTO) 0 % (1-7); LYMPHOCYTES # (AUTO) 1.61 x10^3/uL (1-3.4); LYMPHOCYTES % (AUTO) 11 % (22-44); MD NO; MEAN CORPUSCULAR HEMOGLOBIN 33.3 pg (27.0-34.8); MEAN CORPUSCULAR HGB CONC 33.3 g/dL (32.4-35.8); MEAN CORPUSCULAR VOLUME 100.2 fL (80-100); MEAN PLATELET VOLUME 9.1 fL (7.4-10.4); MONOCYTES # (AUTO) 0.53 x10^3/uL (0.2-0.8); MONOCYTES % (AUTO) 4 % (2-9); NEUTROPHILS # (AUTO) 13.06 x10^3/uL (1.8-6.8); NEUTROPHILS % (AUTO) 86 % (42-75); PLATELET COUNT 279 x10^3/uL (130-400); RED BLOOD COUNT 4.01 x10^6/uL (3.82-5.3); RED CELL DISTRIBUTION WIDTH 13.1 % (9.6-15.2)
[2020-05-23 23:14] LABS: ALANINE AMINOTRANSFERASE 34 U/L (12-78); ALBUMIN 3.7 g/dL (3.4-5.0); ANION GAP 11 mmol/L (5-15); CALCIUM 9.8 mg/dL (8.5-10.1); CHLORIDE 100 mmol/L (98-107); CREATININE 1.17 mg/dL (0.55-1.02)
[2020-05-23 23:19] LABS: ALKALINE PHOSPHATASE 64 U/L (45-117); BILIRUBIN,TOTAL 0.6 mg/dL (0.2-1.0); TROPONIN I < 0.015 ng/mL (0.000-0.045)
[2020-05-24] MEDS ORDERED: SODIUM CHLORIDE 0.9% 1,000ML IVBOLUS ONE (01:00)
[2020-05-24] MEDS ORDERED: MORPHINE SULFATE 4 MG/ML, 1ML ONE (01:32)
[2020-05-24] MEDS: MORPHINE SULFATE 4 MG/ML, 1ML IVPush PRN ×2 (01:34→03:16)
[2020-05-24] MEDS ORDERED: SODIUM CHLORIDE 0.9% 1,000 ML IV ONE (01:36)
[2020-05-24] MEDS ORDERED: MORPHINE SULFATE 4 MG/ML, 1ML IVPush PRN (02:00)
[2020-05-24] MEDS ORDERED: ONDANSETRON 2MG/ML, 2ML IVPush PRN ×2 (02:00→03:00)
--- NOTE | 2020-05-24 02:08 | NUR ---
Patient attempted to provide urine with no success.
[2020-05-24] MEDS ORDERED: DIPHENHYDRAMINE 50 MG/ML, 1ML IVPush ONE (03:00)
[2020-05-24] MEDS ORDERED: hydrALAzine 20 MG/ML, 1ML IVPush PRN (03:00)
[2020-05-24] MEDS ORDERED: OMNIPAQUE 350 MG/ML, 100ML BOTTLE ONE (03:42)
[2020-05-24 03:43] VITALS: BP 119/80
[2020-05-24] MEDS: LACTATED RINGERS 1,000 ML IV SCH ×2 (03:52→21:45)
[2020-05-24 06:42] VITALS: BP 101/70
[2020-05-24 07:27] LABS: MICROSCOPIC INDICATED
[2020-05-24] MEDS ORDERED: SUMATRIPTAN 6MG/0.5ML SQ ONE (14:00)
[2020-05-24] MEDS ORDERED: OMNIPAQUE 350 MG/ML, 150 ML BOTTLE ONE (16:15)
[2020-05-24 17:45] VITALS: BP 100/67
[2020-05-24 19:43] VITALS: BP 103/70
[2020-05-24] MEDS: morphine SULFATE 10 MG/ML, 1ML IVPush PRN (21:45)
[2020-05-25 01:19] VITALS: BP 98/56
[2020-05-25 04:48] LABS: MEAN CORPUSCULAR HEMOGLOBIN 33.1 pg (27.0-34.8); MEAN CORPUSCULAR HGB CONC 32.5 g/dL (32.4-35.8); MEAN CORPUSCULAR VOLUME 101.8 fL (80-100); MEAN PLATELET VOLUME 8.7 fL (7.4-10.4); PLATELET COUNT 213 x10^3/uL (130-400); RED BLOOD COUNT 3.59 x10^6/uL (3.82-5.3); RED CELL DISTRIBUTION WIDTH 13.3 % (9.6-15.2)
[2020-05-25 04:59] LABS: ANION GAP 8 mmol/L (5-15); CALCIUM 8.8 mg/dL (8.5-10.1); CHLORIDE 103 mmol/L (98-107); CREATININE 0.72 mg/dL (0.55-1.02)
[2020-05-25 05:52] LABS: BASOPHILS # (AUTO) 0.04 x10^3/uL (0-0.1); BASOPHILS % (AUTO) 0 % (0-1); EOSINOPHILS # (AUTO) 0.08 x10^3/uL (0-0.4); EOSINOPHILS % (AUTO) 1 % (1-7); LYMPHOCYTES # (AUTO) 1.76 x10^3/uL (1-3.4); LYMPHOCYTES % (AUTO) 10 % (22-44); MD SCAN; MONOCYTES # (AUTO) 0.75 x10^3/uL (0.2-0.8); MONOCYTES % (AUTO) 4 % (2-9); NEUTROPHILS # (AUTO) 14.53 x10^3/uL (1.8-6.8); NEUTROPHILS % (AUTO) 85 % (42-75)
[2020-05-25 06:38] VITALS: BP 110/71
[2020-05-25] MEDS: LACTATED RINGERS 1,000 ML IV SCH (11:46)
[2020-05-25] MEDS: morphine SULFATE 10 MG/ML, 1ML IVPush PRN (11:47)
[2020-05-25 13:46] VITALS: BP 132/88
[2020-05-25] MEDS: SUMATRIPTAN 25 MG TABLET PO PRN (15:27)
[2020-05-25 19:12] VITALS: BP 113/81
[2020-05-26 00:20] VITALS: BP 118/76
[2020-05-26] MEDS: LACTATED RINGERS 1,000 ML IV SCH ×2 (00:20→12:54)
[2020-05-26 06:43] VITALS: BP 114/77
[2020-05-26] MEDS ORDERED: ONDANSETRON ODT 4 MG PO PRN (08:00)
[2020-05-26 12:42] LABS: BASOPHILS # (AUTO) 0.01 x10^3/uL (0-0.1); BASOPHILS % (AUTO) 0 % (0-1); EOSINOPHILS # (AUTO) 0.19 x10^3/uL (0-0.4); EOSINOPHILS % (AUTO) 1 % (1-7); LYMPHOCYTES # (AUTO) 1.72 x10^3/uL (1-3.4); LYMPHOCYTES % (AUTO) 13 % (22-44); MD NO; MEAN CORPUSCULAR HEMOGLOBIN 33.8 pg (27.0-34.8); MEAN CORPUSCULAR HGB CONC 33.6 g/dL (32.4-35.8); MEAN CORPUSCULAR VOLUME 100.7 fL (80-100); MEAN PLATELET VOLUME 8.9 fL (7.4-10.4); MONOCYTES # (AUTO) 0.65 x10^3/uL (0.2-0.8); MONOCYTES % (AUTO) 5 % (2-9); NEUTROPHILS # (AUTO) 11.01 x10^3/uL (1.8-6.8); NEUTROPHILS % (AUTO) 81 % (42-75); PLATELET COUNT 255 x10^3/uL (130-400); RED BLOOD COUNT 3.81 x10^6/uL (3.82-5.3); RED CELL DISTRIBUTION WIDTH 13.3 % (9.6-15.2)
[2020-05-26 12:49] VITALS: BP 114/74
[2020-05-26 12:54] LABS: ANION GAP 6 mmol/L (5-15); CALCIUM 9.7 mg/dL (8.5-10.1); CHLORIDE 105 mmol/L (98-107); CREATININE 0.77 mg/dL (0.55-1.02)
[2020-05-26 19:23] VITALS: BP 119/78
[2020-05-26] MEDS: SUMATRIPTAN 25 MG TABLET PO PRN (20:18)
[2020-05-27 00:54] VITALS: BP 122/83
[2020-05-27] MEDS: LACTATED RINGERS 1,000 ML IV SCH (03:00)
[2020-05-27 07:58] VITALS: BP 108/78
[2020-05-27 13:17] VITALS: BP 114/83
== END 2020-05-27 17:28 | disposition home health service (06) | DRG 388 ==
LOC: ED 05-24 00:11 → EDIP 05-24 01:36 → 3N 05-24 02:56
PROVIDERS: ADMIT Family Medicine; ATTEND Internal Medicine
PROC: 0D9670Z Drainage of Stomach with Drainage Device, Via Natural or Artificial Opening (ICD-10-PCS; principal; 2020-05-24)
DX: K56.52 Intestinal adhesions [bands] with complete obstruction (principal); N17.0 Acute kidney failure with tubular necrosis; Z68.1 Body mass index [BMI] 19.9 or less, adult; R18.8 Other ascites; E44.0 Moderate protein-calorie malnutrition; D72.828 Other elevated white blood cell count; G43.909 Migraine, unspecified, not intractable, without status migrainosus; F41.1 Generalized anxiety disorder; K21.9 Gastro-esophageal reflux disease without esophagitis; Z88.0 Allergy status to penicillin; Z80.42 Family history of malignant neoplasm of prostate
CPT/HCPCS: 36415; 74177; 74240; 80048; 80053; 81001; 83690; 84484; 85025; 96374; G0378; J2405; Q9967; J1200; J2270; J3030; J7030; J7120

== ENCOUNTER 2020-09-27 11:49 | Emergency (ER) | payer MEDICARE ==
[~2020-09-27] VITALS: Ht 152.4 cm; Wt 41.0 kg
[~2020-09-27 11:49] MED LIST changes: -CALC-666 PO; +CALC500T14 PO
[2020-09-27 12:44] LABS: BASOPHILS % (AUTO) 0 % (0-1); EOSINOPHILS % (AUTO) 1 % (1-7); LYMPHOCYTES % (AUTO) 17 % (22-44); MEAN CORPUSCULAR HEMOGLOBIN 33.8 pg (27.0-34.8); MEAN PLATELET VOLUME 9.4 fL (7.4-10.4); MONOCYTES % (AUTO) 7 % (2-9); NEUTROPHILS % (AUTO) 74 % (42-75); PLATELET COUNT 244 x10^3/uL (130-400); RED BLOOD COUNT 3.63 x10^6/uL (3.82-5.3); RED CELL DISTRIBUTION WIDTH 13.1 % (9.6-15.2)
[2020-09-27 12:46] LABS: MD NO
[2020-09-27 12:55] LABS: ALANINE AMINOTRANSFERASE 21 U/L (12-78); ALBUMIN 3.5 g/dL (3.4-5.0); ANION GAP 7 mmol/L (5-15); CALCIUM 9.5 mg/dL (8.5-10.1); CHLORIDE 103 mmol/L (98-107); CREATININE 0.87 mg/dL (0.55-1.02)
[2020-09-27 12:57] LABS: ALKALINE PHOSPHATASE 73 U/L (45-117); BILIRUBIN,TOTAL 0.4 mg/dL (0.2-1.0); TOTAL PROTEIN 7.4 g/dL (6.4-8.2)
[2020-09-27 13:01] LABS: MICROSCOPIC NOT IND
--- NOTE | 2020-09-27 13:21 | NUR ---
ASSISTED PATIENT TO RESTROOM, STATES THAT SHE IS FEELING NO BETTER THAN WHEN SHE ARRIVED, BEGAN FEELING DIZZY IN CT WHILE LYING FLAT.
[2020-09-27] MEDS ORDERED: PINK LADY ENEMA 490 ML BOTTLE PR ONE (14:00)
--- NOTE | 2020-09-27 15:28 | NUR ---
PATIENT AMBULATED TO RESTROOM WITH MINIMAL ASSISTANCE.
[2020-09-27 18:37] VITALS: BP 112/71
== END 2020-09-27 18:40 | disposition home or self-care (01) ==
LOC: ED 14:39
DX: R10.84 Generalized abdominal pain (principal); K59.00 Constipation, unspecified; K21.9 Gastro-esophageal reflux disease without esophagitis
CPT/HCPCS: 36415; 74021; 74176; 80053; 81003; 83690; 85025; 99285

== ENCOUNTER → 2020-12-05 | Outpatient (CLI) | payer MEDICARE ==
[~2020-12-05] MED LIST changes: -DICY20TA3 PO; +DICY20TA4 PO
== END | disposition home or self-care (01) ==
LOC: RAD 11:23
PROVIDERS: ATTEND Physician Assistant Medical
DX: R22.41 Localized swelling, mass and lump, right lower limb (principal)

== ENCOUNTER 2020-12-18 09:50 | Observation (INO) | payer MEDICARE ==
[~2020-12-18] VITALS: Ht 154.9 cm; Wt 40.9 kg
--- NOTE | 2020-12-18 10:19 | NUR ---
TO HEAD CT. LAB/EKG DEFERRED UNTIL CT COMPLETE
--- NOTE | 2020-12-18 10:28 | NUR ---
BROTHER [phone]
[2020-12-18] MEDS ORDERED: SODIUM CHLORIDE FLUSH 10ML SYR IVF ONE (10:30)
--- NOTE | 2020-12-18 10:57 | NUR ---
REPORT TO DAVID RIVAS
[2020-12-18 10:58] LABS: BASOPHILS % (AUTO) 1 % (0-1); EOSINOPHILS % (AUTO) 1 % (1-7); LYMPHOCYTES % (AUTO) 17 % (22-44); MEAN CORPUSCULAR HEMOGLOBIN 33.5 pg (27.0-34.8); MEAN CORPUSCULAR HGB CONC 33.6 g/dL (32.4-35.8); MEAN PLATELET VOLUME 8.8 fL (7.4-10.4); MONOCYTES % (AUTO) 7 % (2-9); NEUTROPHILS % (AUTO) 76 % (42-75); PLATELET COUNT 236 x10^3/uL (130-400); RED BLOOD COUNT 3.52 x10^6/uL (3.82-5.3); RED CELL DISTRIBUTION WIDTH 13.5 % (9.6-15.2)
[2020-12-18 11:00] LABS: MD NO
[2020-12-18 11:02] LABS: ALANINE AMINOTRANSFERASE 18 U/L (12-78); ALBUMIN 3.6 g/dL (3.4-5.0); ANION GAP 6 mmol/L (5-15); CALCIUM 9.5 mg/dL (8.5-10.1); CHLORIDE 104 mmol/L (98-107); CREATININE 0.86 mg/dL (0.55-1.02)
--- NOTE | 2020-12-18 11:02 | NUR ---
RECEIVED REPORT FROM BERNARDA RIVAS. ASSUMING CARE AT THIS TIME. PT CGA TRANSFER TO BEDSIDE COMMODE TO RETRIEVE URINE SAMPLE. UA COLLECTED AND SENT TO LAB. AT BEDSIDE.
[2020-12-18 11:06] LABS: ALKALINE PHOSPHATASE 70 U/L (45-117); BILIRUBIN,TOTAL 0.5 mg/dL (0.2-1.0); TOTAL PROTEIN 7.1 g/dL (6.4-8.2); TROPONIN I < 0.015 ng/mL (0.000-0.045)
[2020-12-18 11:20] LABS: MICROSCOPIC NOT IND
--- NOTE | 2020-12-18 11:22 | NUR ---
N/O FOR MRI. PT GOING TO MRI.
--- NOTE | 2020-12-18 11:48 | NUR ---
PT BACK FROM MRI. MRI NOT COMPLETED. PER LEASE OUT MAN, PT BECAME ANXIOUS AND STATES SHE IS CLOSTROPHOBIC. HOSPITALIST AT BEDSIDE AND AWARE OF MRI STATUS. PT RECONNECTED TO MONITORING. CALL LIGHT IN REACH.
--- NOTE | 2020-12-18 11:50 | NUR ---
PT STATES SHE "HAD A GOOD BOWEL MOVEMENT THIS MORINING."
--- NOTE | 2020-12-18 12:06 | NUR ---
REPORT GIVEN TO LEIDY RIVAS. PT RTG TO ROOM 422
--- NOTE | 2020-12-18 12:13 | NUR ---
PT PROVIDED DIET TRAY.
[2020-12-18] MEDS ORDERED: MECLIZINE 25 MG TABLET PO PRN (12:30)
[2020-12-18] MEDS ORDERED: SODIUM CHLORIDE 0.9% 1,000 ML IV SCH (12:30)
[2020-12-18] MEDS ORDERED: ENALAPRILAT 1.25 MG/ML, 2ML IVPush PRN (12:30)
[2020-12-18] MEDS ORDERED: RIZATRIPTAN BENZOATE 10 MG PO PRN (12:30)
[2020-12-18] MEDS ORDERED: ACETAMINOPHEN 325 MG TABLET PO PRN (12:30)
[2020-12-18] MEDS ORDERED: MELATONIN 5 MG TABLET PO PRN (12:30)
[2020-12-18] MEDS ORDERED: ENOXAPARIN 40 MG/0.4 ML SQ SCH (12:30)
[2020-12-18] MEDS ORDERED: ONDANSETRON ODT 4 MG PO PRN (12:30)
[2020-12-18] MEDS ORDERED: LABETALOL 5MG/ML, 20ML IVPush PRN (12:30)
[2020-12-18] MEDS ORDERED: BISACODYL 10 MG SUPP PR PRN (12:30)
[2020-12-18] MEDS ORDERED: ONDANSETRON 2MG/ML, 2ML IVPush PRN (12:30)
[2020-12-18] MEDS ORDERED: POLYETHYLENE GLYCOL 17 GM PACKET PO PRN (12:30)
[2020-12-18 12:32] VITALS: BP 146/89
[2020-12-18 15:28] VITALS: BP 123/83
[2020-12-18] MEDS ORDERED: VALPROIC ACID 250 MG CAPSULE PO SCH (16:00)
[2020-12-18] MEDS ORDERED: SUMATRIPTAN 25 MG TABLET PO ONE (17:14)
[2020-12-18] MEDS ORDERED: SUMATRIPTAN 25 MG TABLET ONE (17:21)
[2020-12-18] MEDS ORDERED: SUMATRIPTAN 25 MG TABLET PO PRN (17:30)
[2020-12-18] MEDS: VALPROATE SODIUM 250 MG/5 ML UDC PO SCH ×2 (17:32→21:04)
[2020-12-18 19:25] VITALS: BP 141/86
[2020-12-18] MEDS ORDERED: VALPROATE SODIUM 250 MG/5 ML UDC PO SCH (21:00)
[2020-12-19 00:25] VITALS: BP 136/81
[2020-12-19 05:50] LABS: ANION GAP 5 mmol/L (5-15); CALCIUM 9.1 mg/dL (8.5-10.1); CHLORIDE 108 mmol/L (98-107)
[2020-12-19 05:57] LABS: BASOPHILS % (AUTO) 0 % (0-1); EOSINOPHILS % (AUTO) 2 % (1-7); LYMPHOCYTES % (AUTO) 36 % (22-44); MEAN CORPUSCULAR HEMOGLOBIN 33.9 pg (27.0-34.8); MEAN CORPUSCULAR HGB CONC 33.8 g/dL (32.4-35.8); MEAN PLATELET VOLUME 9.1 fL (7.4-10.4); MONOCYTES % (AUTO) 6 % (2-9); NEUTROPHILS % (AUTO) 55 % (42-75); PLATELET COUNT 223 x10^3/uL (130-400); RED BLOOD COUNT 3.44 x10^6/uL (3.82-5.3); RED CELL DISTRIBUTION WIDTH 13.1 % (9.6-15.2)
[2020-12-19 06:01] LABS: CREATININE 0.82 mg/dL (0.55-1.02)
[2020-12-19 06:12] LABS: MD NO
[2020-12-19] MEDS: PANTOPRAZOLE 20MG TABLET PO SCH (06:12)
[2020-12-19 06:50] VITALS: BP 119/79
[2020-12-19] MEDS ORDERED: ACETAMINOPHEN 325 MG TABLET PO PRN (08:00)
[2020-12-19] MEDS ORDERED: LORazepam 2 MG/ML, 1ML IVPush PRN (08:00)
[2020-12-19] MEDS: SENNA/DOCUSATE TABLET PO SCH (08:25)
[2020-12-19] MEDS: CITALOPRAM 10 MG TABLET PO SCH (08:25)
[2020-12-19] MEDS: VALPROATE SODIUM 250 MG/5 ML UDC PO SCH ×3 (08:25→20:26)
[2020-12-19] MEDS: LACTOBACILLUS CHEW TABLET PO SCH ×3 (08:25→20:26)
[2020-12-19] MEDS: HEPARIN 5,000 UNITS/ML, 1ML SQ SCH ×2 (08:26→20:26)
[2020-12-19] MEDS ORDERED: ACID1TAB7 PO (11:53)
[2020-12-19 12:12] VITALS: BP 126/81
[2020-12-19] MEDS: SUMATRIPTAN 100 MG TABLET PO PRN (16:21)
[2020-12-19 20:18] VITALS: BP 130/85
[2020-12-20 01:17] VITALS: BP 116/79
[2020-12-20] MEDS: PANTOPRAZOLE 20MG TABLET PO SCH (06:07)
[2020-12-20 07:11] VITALS: BP 124/81
[2020-12-20] MEDS: SENNA/DOCUSATE TABLET PO SCH (09:08)
[2020-12-20] MEDS: LACTOBACILLUS CHEW TABLET PO SCH (09:09)
[2020-12-20] MEDS: HEPARIN 5,000 UNITS/ML, 1ML SQ SCH (09:09)
[2020-12-20] MEDS: CITALOPRAM 10 MG TABLET PO SCH (09:09)
[2020-12-20] MEDS: VALPROATE SODIUM 250 MG/5 ML UDC PO SCH (09:17)
[2020-12-20 12:06] VITALS: BP 117/76
[2020-12-20] MEDS: SUMATRIPTAN 100 MG TABLET PO PRN (12:38)
== END 2020-12-20 14:30 | disposition home or self-care (01) ==
LOC: ED 10:42 → EDIP 11:39 → INTOOBSV 11:39 → 4WST 12:25 → DCLOUNGE 12-20 14:10
PROVIDERS: ADMIT Hospitalist; ATTEND Internal Medicine
DX: R20.0 Anesthesia of skin (principal); R29.810 Facial weakness; R42 Dizziness and giddiness; I10 Essential (primary) hypertension; R20.2 Paresthesia of skin; R40.4 Transient alteration of awareness; G43.909 Migraine, unspecified, not intractable, without status migrainosus; G40.209 Localization-related (focal) (partial) symptomatic epilepsy and epileptic syndromes with complex partial seizures, not intractable, without status epilepticus; K21.9 Gastro-esophageal reflux disease without esophagitis; F41.9 Anxiety disorder, unspecified; G47.30 Sleep apnea, unspecified; G23.8 Other specified degenerative diseases of basal ganglia; F02.80 Dementia in other diseases classified elsewhere, unspecified severity, without behavioral disturbance, psychotic disturbance, mood disturbance, and anxiety; J32.0 Chronic maxillary sinusitis; R62.7 Adult failure to thrive; Z86.73 Personal history of transient ischemic attack (TIA), and cerebral infarction without residual deficits; Z87.19 Personal history of other diseases of the digestive system; Z79.899 Other long term (current) drug therapy; Z88.0 Allergy status to penicillin; Z90.49 Acquired absence of other specified parts of digestive tract
CPT/HCPCS: 36415; 70450; 70551; 80048; 80053; 81003; 84443; 84484; 85025; 92523; 93005; 96361; 96372; 96374; 96375; 97161; 99285; G0378; J1644; J1650; J2060; J2405; J7030

== ENCOUNTER → 2021-02-09 | Outpatient (CLI) | payer MEDICARE ==
[~2021-02-09] MED LIST changes: +ACID1TAB7 PO
== END | disposition home or self-care (01) ==
LOC: RAD 11:17
PROVIDERS: ATTEND Internal Medicine
DX: S92.911D Unspecified fracture of right toe(s), subsequent encounter for fracture with routine healing (principal); K31.89 Other diseases of stomach and duodenum; R09.89 Other specified symptoms and signs involving the circulatory and respiratory systems; X58.XXXD Exposure to other specified factors, subsequent encounter
CPT/HCPCS: 73630; 78264; A9541

== ENCOUNTER → 2021-02-18 | Outpatient (CLI) | payer MEDICARE | END | disposition home or self-care (01) | LOC: RAD 13:45 | PROVIDERS: ATTEND Genetic Counselor, MS | DX: S92.911D Unspecified fracture of right toe(s), subsequent encounter for fracture with routine healing (principal); R09.89 Other specified symptoms and signs involving the circulatory and respiratory systems; X58.XXXD Exposure to other specified factors, subsequent encounter | CPT/HCPCS: 93880 ==

== ENCOUNTER 2021-05-17 19:18 | Inpatient (IN) | payer MEDICARE ==
[~2021-05-17] VITALS: Ht 147.3 cm; Wt 40.4 kg
[2021-05-17 19:51] LABS: BASOPHILS % (AUTO) 0 % (0-1); EOSINOPHILS % (AUTO) 0 % (1-7); LYMPHOCYTES % (AUTO) 17 % (22-44); MEAN CORPUSCULAR HEMOGLOBIN 33.5 pg (27.0-34.8); MEAN CORPUSCULAR HGB CONC 34.1 g/dL (32.4-35.8); MEAN PLATELET VOLUME 8.8 fL (7.4-10.4); MONOCYTES % (AUTO) 8 % (2-9); NEUTROPHILS % (AUTO) 74 % (42-75); PLATELET COUNT 278 x10^3/uL (130-400); RED BLOOD COUNT 4.04 x10^6/uL (3.82-5.3); RED CELL DISTRIBUTION WIDTH 13.9 % (9.6-15.2)
[2021-05-17 20:03] LABS: ALANINE AMINOTRANSFERASE 26 U/L (12-78); ALBUMIN 3.7 g/dL (3.4-5.0); ANION GAP 9 mmol/L (5-15); CHLORIDE 98 mmol/L (98-107); CREATININE 0.98 mg/dL (0.55-1.02)
[2021-05-17 20:07] LABS: ALKALINE PHOSPHATASE 69 U/L (45-117); BILIRUBIN,TOTAL 0.8 mg/dL (0.2-1.0); TOTAL PROTEIN 8.3 g/dL (6.4-8.2); TROPONIN I < 0.015 ng/mL (0.000-0.045)
[2021-05-17] MEDS ORDERED: ONDANSETRON 2MG/ML, 2ML IVPush ONE (21:30)
[2021-05-17] MEDS ORDERED: SODIUM CHLORIDE FLUSH 10ML SYR IVF ONE (21:30)
[2021-05-17] MEDS ORDERED: MORPHINE SULFATE 4 MG/ML, 1ML IVPush PRN (21:30)
[2021-05-17] MEDS ORDERED: SODIUM CHLORIDE 0.9% 1,000ML IVBOLUS ONE (21:30)
[2021-05-17] MEDS ORDERED: MORPHINE SULFATE 4 MG/ML, 1ML ONE (21:38)
[2021-05-17] MEDS ORDERED: ONDANSETRON 2MG/ML, 2ML ONE (21:38)
--- NOTE | 2021-05-17 21:53 | NUR ---
PT CAME CO OF DIFFUSE ABD PAIN AND VOMITTING THAT STARTED EARLY THIS MORNING. PT SAYS SHE HAS HAD MULTIPLE OBSTRUCTIONS IN THE PAST AND SAYS "THIS FEELS SIMILAR". PT RESTING IN [facility]. LABS DRAWN. IV FLUIDS INFUSING. MEDICATED PER MAR. CONNECTED TO MONITORS. BLANKETS PROVIDED.
[2021-05-17] MEDS ORDERED: AZITHROMYCIN 500 MG in SODIUM CHLORIDE 0.9% 250 ML IVPB ONE (23:30)
[2021-05-17] MEDS ORDERED: CEFTRIAXONE 1,000 MG in DEXTROSE 5% 50 ML IVPB ONE (23:30)
[2021-05-18] MEDS ORDERED: SODIUM CHLORIDE 0.9% 1,000 ML IV SCH
[2021-05-18] MEDS ORDERED: LABETALOL 5MG/ML, 20ML IVPush PRN
[2021-05-18] MEDS ORDERED: ONDANSETRON ODT 4 MG PO PRN
[2021-05-18] MEDS ORDERED: AZITHROMYCIN 500 MG in SODIUM CHLORIDE 0.9% 250 ML IV SCH
[2021-05-18] MEDS ORDERED: ENALAPRILAT 1.25 MG/ML, 2ML IVPush PRN
[2021-05-18] MEDS ORDERED: KETOROLAC 30 MG/1 ML IV PRN
[2021-05-18] MEDS ORDERED: BISACODYL 10 MG SUPP PR PRN
[2021-05-18] MEDS ORDERED: OMNIPAQUE 350 MG/ML, 100ML BOTTLE ONE
--- NOTE | 2021-05-18 00:50 | NUR ---
Report to ROB Williamson
[2021-05-18 01:26] VITALS: BP 130/86
[2021-05-18 05:32] LABS: BASOPHILS % (AUTO) 0 % (0-1); EOSINOPHILS % (AUTO) 0 % (1-7); LYMPHOCYTES % (AUTO) 12 % (22-44); MEAN CORPUSCULAR HEMOGLOBIN 33.2 pg (27.0-34.8); MEAN CORPUSCULAR HGB CONC 33.3 g/dL (32.4-35.8); MEAN PLATELET VOLUME 9.3 fL (7.4-10.4); MONOCYTES % (AUTO) 8 % (2-9); NEUTROPHILS % (AUTO) 80 % (42-75); PLATELET COUNT 205 x10^3/uL (130-400); RED BLOOD COUNT 3.67 x10^6/uL (3.82-5.3); RED CELL DISTRIBUTION WIDTH 13.6 % (9.6-15.2)
[2021-05-18 05:40] LABS: ANION GAP 6 mmol/L (5-15); CALCIUM 9.1 mg/dL (8.5-10.1); CHLORIDE 102 mmol/L (98-107); CREATININE 0.73 mg/dL (0.55-1.02)
[2021-05-18 06:49] VITALS: BP 108/76
[2021-05-18] MEDS: HEPARIN 5,000 UNITS/ML, 1ML SQ SCH ×2 (08:00→21:05)
[2021-05-18] MEDS ORDERED: morphine SULFATE 10 MG/ML, 1ML IVPush PRN ×2 (09:00)
[2021-05-18] MEDS: BISACODYL 10 MG SUPP PR SCH (09:00)
[2021-05-18 12:34] VITALS: BP 102/69
[2021-05-18] MEDS: KETOROLAC 30 MG/1 ML IV PRN (15:54)
[2021-05-18 21:09] VITALS: BP 93/63
[2021-05-18] MEDS: SODIUM CHLORIDE 0.9% 1,000 ML IV SCH (21:09)
[2021-05-18 23:59] LABS: MICROSCOPIC NOT IND
[2021-05-19] MEDS: CEFTRIAXONE 1,000 MG in DEXTROSE 5% 50 ML IVPB SCH (00:12)
[2021-05-19] MEDS: KETOROLAC 30 MG/1 ML IV PRN ×3 (00:17→20:05)
[2021-05-19 00:38] VITALS: BP 102/62
[2021-05-19 04:55] LABS: BASOPHILS % (AUTO) 0 % (0-1); EOSINOPHILS % (AUTO) 2 % (1-7); LYMPHOCYTES % (AUTO) 18 % (22-44); MEAN CORPUSCULAR HEMOGLOBIN 33.3 pg (27.0-34.8); MEAN CORPUSCULAR HGB CONC 32.9 g/dL (32.4-35.8); MEAN PLATELET VOLUME 9.3 fL (7.4-10.4); MONOCYTES % (AUTO) 8 % (2-9); NEUTROPHILS % (AUTO) 72 % (42-75); PLATELET COUNT 168 x10^3/uL (130-400); RED BLOOD COUNT 3.34 x10^6/uL (3.82-5.3)
[2021-05-19 06:37] VITALS: BP 111/69
[2021-05-19] MEDS: HEPARIN 5,000 UNITS/ML, 1ML SQ SCH ×2 (08:00→20:05)
[2021-05-19] MEDS: BISACODYL 10 MG SUPP PR SCH (09:00)
[2021-05-19 12:17] VITALS: BP 105/70
[2021-05-19 19:31] VITALS: BP 122/83
[2021-05-19] MEDS: SODIUM CHLORIDE 0.9% 1,000 ML IV SCH (19:57)
[2021-05-20] MEDS: CEFTRIAXONE 1,000 MG in DEXTROSE 5% 50 ML IVPB SCH (00:09)
[2021-05-20 01:18] VITALS: BP 139/85
[2021-05-20 06:19] LABS: BASOPHILS % (AUTO) 0 % (0-1); EOSINOPHILS % (AUTO) 3 % (1-7); LYMPHOCYTES % (AUTO) 11 % (22-44); MEAN CORPUSCULAR HGB CONC 32.7 g/dL (32.4-35.8); MONOCYTES % (AUTO) 5 % (2-9); NEUTROPHILS % (AUTO) 80 % (42-75); PLATELET COUNT 193 x10^3/uL (130-400); RED BLOOD COUNT 3.23 x10^6/uL (3.82-5.3); RED CELL DISTRIBUTION WIDTH 13.6 % (9.6-15.2)
[2021-05-20 06:48] VITALS: BP 120/70
[2021-05-20] MEDS: HEPARIN 5,000 UNITS/ML, 1ML SQ SCH ×2 (08:00→20:08)
[2021-05-20] MEDS: BISACODYL 10 MG SUPP PR SCH (08:26)
[2021-05-20] MEDS: CEFUROXIME 1.5 GM in SODIUM CHLORIDE 0.9% 50 ML IV SCH ×2 (09:05→17:42)
[2021-05-20] MEDS: PANTOPRAZOLE 40 MG IV IVPush SCH (11:30)
[2021-05-20] MEDS ORDERED: OXYcodone 5 MG/5 ML ORAL.SOL UDC PO PRN (11:30)
[2021-05-20] MEDS ORDERED: PROMETHAZINE 25 MG/ML, 1ML IVPush PRN (11:30)
[2021-05-20] MEDS ORDERED: LORazepam 2 MG/ML, 1ML IVPush PRN (11:30)
[2021-05-20] MEDS ORDERED: hydrALAzine 20 MG/ML, 1ML IV PRN (11:30)
[2021-05-20] MEDS ORDERED: FENTANYL PF 100 MCG/2ML IV PRN (11:30)
[2021-05-20] MEDS ORDERED: LABETALOL 5MG/ML, 20ML IV PRN (11:30)
[2021-05-20] MEDS ORDERED: EPHEDRINE 50 MG/ML, 1ML IVPush PRN (11:30)
[2021-05-20] MEDS ORDERED: HYDROmorphone 1 MG/ML, 1ML INJ IVPush PRN (11:30)
[2021-05-20] MEDS ORDERED: ACETAMINOPHEN 325 MG TABLET PO PRN (11:30)
[2021-05-20] MEDS ORDERED: ONDANSETRON 2MG/ML, 2ML IVPush PRN (11:30)
[2021-05-20] MEDS: DOXYCYCLINE 100 MG in DEXTROSE 5% 250 ML IV SCH ×2 (11:59→22:48)
[2021-05-20] MEDS: KETOROLAC 30 MG/1 ML IV PRN (11:59)
[2021-05-20 13:15] VITALS: BP 123/79
[2021-05-20] MEDS: SODIUM CHLORIDE 0.9% 1,000 ML IV SCH (17:42)
[2021-05-20 19:15] VITALS: BP 123/81
[2021-05-20] MEDS: ONDANSETRON 2MG/ML, 2ML IVPush PRN (19:18)
[2021-05-21] MEDS: PANTOPRAZOLE 40 MG IV IVPush SCH ×3 (00:03→23:17)
[2021-05-21] MEDS: CEFUROXIME 1.5 GM in SODIUM CHLORIDE 0.9% 50 ML IV SCH ×2 (01:04→10:03)
[2021-05-21 01:18] VITALS: BP 140/83
[2021-05-21 06:03] LABS: BASOPHILS % (AUTO) 0 % (0-1); EOSINOPHILS % (AUTO) 4 % (1-7); LYMPHOCYTES % (AUTO) 4 % (22-44); MEAN CORPUSCULAR HGB CONC 33.1 g/dL (32.4-35.8); MEAN PLATELET VOLUME 8.6 fL (7.4-10.4); MONOCYTES % (AUTO) 8 % (2-9); NEUTROPHILS % (AUTO) 85 % (42-75); PLATELET COUNT 227 x10^3/uL (130-400); RED BLOOD COUNT 3.34 x10^6/uL (3.82-5.3); RED CELL DISTRIBUTION WIDTH 13.5 % (9.6-15.2)
[2021-05-21 06:16] LABS: CHLORIDE 107 mmol/L (98-107)
[2021-05-21 06:28] LABS: ANION GAP 12 mmol/L (5-15); CALCIUM 9.2 mg/dL (8.5-10.1)
[2021-05-21] MEDS: ONDANSETRON 2MG/ML, 2ML IVPush PRN (07:47)
[2021-05-21 07:55] VITALS: BP 147/74
[2021-05-21] MEDS: CITALOPRAM 10 MG TABLET PO SCH (10:03)
[2021-05-21] MEDS: DOXYCYCLINE 100 MG in DEXTROSE 5% 250 ML IV SCH ×2 (10:08→22:14)
[2021-05-21] MEDS: BISACODYL 10 MG SUPP PR SCH ×2 (10:49→10:56)
[2021-05-21 12:29] VITALS: BP 147/74
[2021-05-21] MEDS: KETOROLAC 30 MG/1 ML IV PRN (15:18)
[2021-05-21] MEDS: SODIUM CHLORIDE 0.9% 1,000 ML IV SCH (15:21)
[2021-05-21] MEDS: MEROPENEM 1 GM in SODIUM CHLORIDE 0.9% 100 ML IV SCH ×2 (15:25→23:17)
[2021-05-21 20:06] VITALS: BP 124/84
[2021-05-21] MEDS: HEPARIN 5,000 UNITS/ML, 1ML SQ SCH (20:47)
[2021-05-22 01:26] VITALS: BP 141/85
[2021-05-22] MEDS: MEROPENEM 1 GM in SODIUM CHLORIDE 0.9% 100 ML IV SCH ×3 (07:10→22:45)
[2021-05-22 07:19] VITALS: BP 108/75
[2021-05-22] MEDS: HEPARIN 5,000 UNITS/ML, 1ML SQ SCH ×2 (08:16→19:57)
[2021-05-22] MEDS: CITALOPRAM 10 MG TABLET PO SCH (08:17)
[2021-05-22] MEDS: SODIUM CHLORIDE 0.9% 1,000 ML IV SCH (08:17)
[2021-05-22] MEDS: DOXYCYCLINE 100 MG in DEXTROSE 5% 250 ML IV SCH ×2 (09:58→21:16)
[2021-05-22] MEDS: PANTOPRAZOLE 40 MG IV IVPush SCH (11:52)
[2021-05-22] MEDS: POTASSIUM CHLORIDE 20 MEQ TAB.ER.PRT PO ONE ×2 (12:00→12:09)
[2021-05-22 12:22] VITALS: BP 124/85
[2021-05-22] MEDS ORDERED: POTASSIUM CHLORIDE 40 MEQ in SODIUM CHLORIDE 0.9% 500 ML IV ONE (13:30)
[2021-05-22 13:56] LABS: BASOPHILS % (AUTO) 1 % (0-1); EOSINOPHILS % (AUTO) 5 % (1-7); LYMPHOCYTES % (AUTO) 8 % (22-44); MEAN CORPUSCULAR HEMOGLOBIN 32.6 pg (27.0-34.8); MEAN CORPUSCULAR HGB CONC 32.7 g/dL (32.4-35.8); MEAN PLATELET VOLUME 9.1 fL (7.4-10.4); MONOCYTES % (AUTO) 7 % (2-9); NEUTROPHILS % (AUTO) 79 % (42-75); PLATELET COUNT 217 x10^3/uL (130-400); RED BLOOD COUNT 3.63 x10^6/uL (3.82-5.3); RED CELL DISTRIBUTION WIDTH 13.7 % (9.6-15.2)
[2021-05-22 14:10] LABS: ANION GAP 7 mmol/L (5-15); CALCIUM 9.1 mg/dL (8.5-10.1); CHLORIDE 106 mmol/L (98-107); CREATININE 0.56 mg/dL (0.55-1.02)
[2021-05-22] MEDS: PANTOPRAZOLE 20MG TABLET PO SCH (16:19)
[2021-05-22 19:33] VITALS: BP 148/91
[2021-05-22] MEDS: KETOROLAC 30 MG/1 ML IV PRN (19:57)
[2021-05-22 23:54] VITALS: BP 124/85
[2021-05-23 00:01] VITALS: BP 124/85
[2021-05-23] MEDS: PANTOPRAZOLE 20MG TABLET PO SCH ×2 (06:02→15:27)
[2021-05-23 06:05] LABS: BASOPHILS % (AUTO) 0 % (0-1); EOSINOPHILS % (AUTO) 6 % (1-7); LYMPHOCYTES % (AUTO) 13 % (22-44); MEAN CORPUSCULAR HEMOGLOBIN 33.7 pg (27.0-34.8); MEAN CORPUSCULAR HGB CONC 34.3 g/dL (32.4-35.8); MEAN PLATELET VOLUME 8.6 fL (7.4-10.4); MONOCYTES % (AUTO) 9 % (2-9); NEUTROPHILS % (AUTO) 72 % (42-75); PLATELET COUNT 236 x10^3/uL (130-400); RED BLOOD COUNT 3.39 x10^6/uL (3.82-5.3); RED CELL DISTRIBUTION WIDTH 13.8 % (9.6-15.2)
[2021-05-23 06:23] LABS: CALCIUM 8.8 mg/dL (8.5-10.1); CHLORIDE 106 mmol/L (98-107)
[2021-05-23 06:27] LABS: ANION GAP 4 mmol/L (5-15); CREATININE 0.45 mg/dL (0.55-1.02)
[2021-05-23] MEDS: MEROPENEM 1 GM in SODIUM CHLORIDE 0.9% 100 ML IV SCH ×3 (06:38→22:51)
[2021-05-23 06:50] VITALS: BP 120/83
[2021-05-23] MEDS ORDERED: POTASSIUM CHLORIDE 40 MEQ in SODIUM CHLORIDE 0.9% 500 ML IV ONE (07:00)
[2021-05-23] MEDS ORDERED: MAGNESIUM SULFATE PMX 2GM/50ML 50 ML IV ONE (07:00)
[2021-05-23] MEDS ORDERED: POTASSIUM CHLORIDE 20 MEQ TAB.ER.PRT PO ONE (07:00)
[2021-05-23] MEDS: BISACODYL 10 MG SUPP PR SCH (09:00)
[2021-05-23] MEDS: CITALOPRAM 10 MG TABLET PO SCH (09:14)
[2021-05-23] MEDS: HEPARIN 5,000 UNITS/ML, 1ML SQ SCH (09:14)
[2021-05-23] MEDS: DOXYCYCLINE 100 MG in DEXTROSE 5% 250 ML IV SCH ×2 (09:17→21:25)
[2021-05-23] MEDS: ENOXAPARIN 40 MG/0.4 ML SQ SCH (10:54)
[2021-05-23 14:23] VITALS: BP 144/90
[2021-05-23 18:31] VITALS: BP 134/91
[2021-05-23] MEDS: DOCUSATE 100 MG CAPSULE PO SCH (19:57)
[2021-05-24 03:55] VITALS: BP 174/102
[2021-05-24 06:30] LABS: BASOPHILS % (AUTO) 0 % (0-1); EOSINOPHILS % (AUTO) 5 % (1-7); LYMPHOCYTES % (AUTO) 12 % (22-44); MEAN CORPUSCULAR HGB CONC 33.6 g/dL (32.4-35.8); MEAN PLATELET VOLUME 8.5 fL (7.4-10.4); MONOCYTES % (AUTO) 6 % (2-9); NEUTROPHILS % (AUTO) 76 % (42-75); PLATELET COUNT 265 x10^3/uL (130-400); RED BLOOD COUNT 3.23 x10^6/uL (3.82-5.3); RED CELL DISTRIBUTION WIDTH 13.3 % (9.6-15.2)
[2021-05-24] MEDS: PANTOPRAZOLE 20MG TABLET PO SCH ×2 (06:30→17:26)
[2021-05-24] MEDS: MEROPENEM 1 GM in SODIUM CHLORIDE 0.9% 100 ML IV SCH ×2 (06:30→17:26)
[2021-05-24 06:40] LABS: ANION GAP 5 mmol/L (5-15); CALCIUM 8.7 mg/dL (8.5-10.1); CHLORIDE 102 mmol/L (98-107)
[2021-05-24] MEDS ORDERED: POTASSIUM CHLORIDE 20 MEQ TAB.ER.PRT PO ONE (07:00)
[2021-05-24 07:16] VITALS: BP 108/76
[2021-05-24] MEDS: DOCUSATE 100 MG CAPSULE PO SCH ×2 (08:28→19:28)
[2021-05-24] MEDS: FUROSEMIDE 20 MG/2 ML IV SCH (08:29)
[2021-05-24] MEDS: CITALOPRAM 10 MG TABLET PO SCH (08:29)
[2021-05-24] MEDS: BISACODYL 10 MG SUPP PR SCH (08:29)
[2021-05-24] MEDS: ENOXAPARIN 40 MG/0.4 ML SQ SCH (11:24)
[2021-05-24 13:40] VITALS: BP 106/76
[2021-05-24 19:12] VITALS: BP 118/73
[2021-05-25] MEDS: ACETAMINOPHEN 325 MG TABLET PO PRN ×2 (00:33→00:53)
[2021-05-25] MEDS: MEROPENEM 1 GM in SODIUM CHLORIDE 0.9% 100 ML IV SCH ×3 (00:55→16:41)
[2021-05-25 01:17] VITALS: BP 110/74
[2021-05-25] MEDS: PANTOPRAZOLE 20MG TABLET PO SCH ×2 (06:06→15:10)
[2021-05-25 07:31] VITALS: BP 125/84
[2021-05-25] MEDS: FUROSEMIDE 20 MG/2 ML IV SCH (07:58)
[2021-05-25] MEDS: BISACODYL 10 MG SUPP PR SCH (07:58)
[2021-05-25] MEDS: CITALOPRAM 10 MG TABLET PO SCH (07:58)
[2021-05-25] MEDS: DOCUSATE 100 MG CAPSULE PO SCH ×3 (07:58→20:36)
[2021-05-25] MEDS: ENOXAPARIN 40 MG/0.4 ML SQ SCH (11:16)
[2021-05-25 13:20] VITALS: BP 113/78
[2021-05-25 19:31] VITALS: BP 115/77
[2021-05-26 00:28] VITALS: BP 133/83
[2021-05-26] MEDS: MEROPENEM 1 GM in SODIUM CHLORIDE 0.9% 100 ML IV SCH ×3 (02:12→15:44)
[2021-05-26 08:02] VITALS: BP 108/88
[2021-05-26] MEDS: DOCUSATE 100 MG CAPSULE PO SCH ×3 (09:00→21:00)
[2021-05-26] MEDS: BISACODYL 10 MG SUPP PR SCH (09:00)
[2021-05-26] MEDS: PANTOPRAZOLE 20MG TABLET PO SCH ×2 (09:53→15:44)
[2021-05-26] MEDS: CITALOPRAM 10 MG TABLET PO SCH (09:54)
[2021-05-26] MEDS: ENOXAPARIN 40 MG/0.4 ML SQ SCH (09:57)
[2021-05-26] MEDS: FUROSEMIDE 20 MG/2 ML IV SCH (09:59)
[2021-05-26 13:27] VITALS: BP 104/69
[2021-05-26 19:45] VITALS: BP 108/82
[2021-05-27 00:24] VITALS: BP 101/69
[2021-05-27] MEDS: MEROPENEM 1 GM in SODIUM CHLORIDE 0.9% 100 ML IV SCH ×3 (01:37→16:28)
[2021-05-27] MEDS: PANTOPRAZOLE 20MG TABLET PO SCH ×2 (06:36→15:23)
[2021-05-27 08:17] VITALS: BP 102/73
[2021-05-27] MEDS: FUROSEMIDE 20 MG/2 ML IV SCH (09:03)
[2021-05-27] MEDS: CITALOPRAM 10 MG TABLET PO SCH (09:04)
[2021-05-27] MEDS: BISACODYL 10 MG SUPP PR SCH (09:04)
[2021-05-27] MEDS: ENOXAPARIN 40 MG/0.4 ML SQ SCH (09:04)
[2021-05-27] MEDS: DOCUSATE 100 MG CAPSULE PO SCH (09:04)
[2021-05-27] MEDS ORDERED: CITA10TA4 PO (09:05)
[2021-05-27] MEDS ORDERED: RIZA10TA5 PO (09:05)
[2021-05-27] MEDS ORDERED: PANT20TA4 PO (09:05)
[2021-05-27 14:47] VITALS: BP 109/70
[2021-05-27] MEDS ORDERED: FUROSEMIDE 20 MG TABLET PO SCH (17:00)
== END 2021-05-27 16:43 | disposition home health service (06) | DRG 388 ==
LOC: ED 21:26 → EDIP 23:34 → 3N 05-18 01:10
PROVIDERS: ADMIT Internal Medicine; ATTEND Hospitalist
PROC: 0D9670Z Drainage of Stomach with Drainage Device, Via Natural or Artificial Opening (ICD-10-PCS; principal; 2021-05-18)
DX: K56.50 Intestinal adhesions [bands], unspecified as to partial versus complete obstruction (principal); J69.0 Pneumonitis due to inhalation of food and vomit; E87.1 Hypo-osmolality and hyponatremia; G23.8 Other specified degenerative diseases of basal ganglia; E86.9 Volume depletion, unspecified; F41.9 Anxiety disorder, unspecified; G43.909 Migraine, unspecified, not intractable, without status migrainosus; G40.909 Epilepsy, unspecified, not intractable, without status epilepticus; I10 Essential (primary) hypertension; K21.9 Gastro-esophageal reflux disease without esophagitis; L27.0 Generalized skin eruption due to drugs and medicaments taken internally; D72.829 Elevated white blood cell count, unspecified; Z20.822 Contact with and (suspected) exposure to COVID-19; Z88.0 Allergy status to penicillin; Z88.6 Allergy status to analgesic agent; Z90.49 Acquired absence of other specified parts of digestive tract
CPT/HCPCS: 36415; 71045; 74018; 74021; 74177; 74250; 80048; 80053; 81003; 83690; 83735; 83880; 84484; 85025; 87040; 87635; 96374; 96375; 99285; G0378; J0456; J0696; J0697; J1644; J1650; J1885; J2185; J2405; J3480; J7060; Q9967; C9113; J1940; J2270; J3475; J7030; J7040; J7050